=== PATIENT | male | born 1950 | race Caucasian/White ===

== ENCOUNTER 2018-08-24 21:46 | Emergency (ER) | payer MEDICARE, OTHER ==
--- NOTE | 2018-08-24 23:15 | EDM.PDOC ---
ED HPI GENERAL MEDICAL PROBLEM - General Chief Complaint: Respiratory Problem Stated Complaint: LUNGS Time Seen by Provider: 08/24/18 23:06 Source of Information: Reports: Patient, Family, RN Notes Reviewed History Limitations: Reports: No Limitations - History of Present Illness INITIAL COMMENTS - FREE TEXT/NARRATIVE: 67-year-old gentleman presents to emergency department today with complaint of pain breath, he states his been going on all day has progressively gotten worse yet has a known history of atrial fibrillation was on sotalol total unfortunately developed a GI bleed from this medication. He is currently on aspirin which he did take today. - Related Data Allergies Allergy/AdvReac Type Severity Reaction Status Date / Time Penicillins Allergy Hives Verified 08/24/18 22:18 Home Meds: Home Meds Aspirin [Ecotrin EC] 325 mg PO DAILY 08/24/18 [History] Metoprolol Tartrate 25 mg PO DAILY 08/24/18 [History] Mometasone Furoate [Asmanex] 220 mcg IH ASDIRECTED 08/24/18 [History] Omeprazole Magnesium [Prilosec Otc] 20 mg PO DAILY 08/24/18 [History] Tamsulosin HCl [Flomax] 0.4 mg PO DAILY 08/24/18 [History] Past Medical History Cardiovascular History: Reports: Afib, Pacemaker Respiratory History: Reports: Other (See Below) Other Respiratory History: scrcoidois with lung involevment 2003 Gastrointestinal History: Reports: Other (See Below) Other Gastrointestinal History: acute idiopathic pancerattic with necrosis 2018 Genitourinary History: Reports: Prostate Disorder - Infectious Disease History Infectious Disease History: Reports: Chicken Pox - Past Surgical History HEENT Surgical History: Reports: Adenoidectomy, Tonsillectomy Cardiovascular Surgical History: Reports: Pacer Neurological Surgical History: Reports: C-Spine, Spinal Fusion Musculoskeletal Surgical History: Reports: Joint Replacement, Other (See Below) Other Musculoskeletal Surgeries/Procedures:: left hip replacement Social & Family History - Tobacco Use Smoking Status *Q: Never Smoker Second Hand Smoke Exposure: No - Caffeine Use Caffeine Use: Reports: Coffee - Recreational Drug Use Recreational Drug Use: No ED ROS GENERAL - Review of Systems Review Of Systems: See Below Constitutional: Reports: No Symptoms HEENT: Reports: No Symptoms Respiratory: Reports: Shortness of Breath Cardiovascular: Reports: Dyspnea on Exertion GI/Abdominal: Reports: No Symptoms ED EXAM, GENERAL - Physical Exam Exam: See Below Exam Limited By: No Limitations General Appearance: Alert, WD/WN, No Apparent Distress Respiratory/Chest: No Respiratory Distress, Lungs Clear, Normal Breath Sounds, No Accessory Muscle Use, Chest Non-Tender Cardiovascular: Irregularly Irregular GI/Abdominal: Soft, Non-Tender Course - Vital Signs Last Recorded V/S: Last Vital Signs Temp 98.9 F 08/24/18 22:26 Pulse 113 H 08/24/18 22:50 Resp 15 08/24/18 22:50 BP 121/72 08/24/18 22:50 Pulse Ox 92 L 08/24/18 22:50 - Orders/Labs/Meds Orders: Active Orders 24 hr Category Date Time Status Cardiac Monitoring [RC] .As Directed Care 08/24/18 23:13 Active EKG Documentation Completion [RC] ASDIRECTED Care 08/24/18 22:31 Active Peripheral IV Care [RC] . DIRECTED Care 08/25/18 00:02 Active Sodium Chloride 0.9% [Normal Saline] 1,000 ml Med 08/25/18 00:15 Active IV ASDIRECTED Sodium Chloride 0.9% [Saline Flush] Med 08/25/18 00:02 Active 10 ml FLUSH ASDIRECTED PRN Peripheral IV Insertion Adult [OM.PC] Urgent Oth 08/25/18 00:01 Ordered EKG 12 Lead [EK] Stat Ther 08/24/18 22:31 Ordered Medication Orders Sodium Chloride (Normal Saline) 1,000 mls @ 500 mls/hr IV ASDIRECTED AV Last Admin: 08/25/18 00:49 Dose: 500 mls/hr Sodium Chloride (Saline Flush) 10 ml FLUSH ASDIRECTED PRN PRN Reason: Keep Vein Open Last Admin: 08/25/18 00:50 Dose: 10 ml Labs: Laboratory Tests 08/24/18 08/24/18 08/24/18 Range/Units 23:12 23:12 23:12 WBC 9.5 (4.5-11.0) K/uL RBC 4.83 (4.30-5.90) M/uL Hgb 14.0 (12.0-15.0) g/dL Hct 42.8 (40.0-54.0) % MCV 89 (80-98) fL MCH 29 (27-31) pg MCHC 33 (32-36) % Plt Count 228 (150-400) K/uL Neut % (Auto) 70 H (36-66) % Lymph % (Auto) 12 L (24-44) % [place] % (Auto) 16 H (2-6) % Eos % (Auto) 1 L (2-4) % Baso % (Auto) 0 (0-1) % D-Dimer, Quantitative 653 H (0.0-400.0) ng/mL Sodium 139 L (140-148) mmol/L Potassium 3.8 (3.6-5.2) mmol/L Chloride 105 (100-108) mmol/L Carbon Dioxide 25 (21-32) mmol/L Anion Gap 12.8 (5.0-14.0) mmol/L BUN 15 (7-18) mg/dL Creatinine 1.1 (0.8-1.3) mg/dL Est Cr Clr Drug Dosing 73.65 mL/min Estimated GFR (MDRD) > 60 (>60) Glucose 113 H (74-106) mg/dL Calcium 8.5 (8.5-10.1) mg/dL Total Bilirubin 1.2 H (0.2-1.0) mg/dL AST 15 (15-37) U/L ALT 26 (12-78) U/L Alkaline Phosphatase 71 (46-116) U/L Troponin I < 0.017 (0.000-0.056) ng/mL Total Protein 6.4 (6.4-8.2) g/dL Albumin 3.1 L (3.4-5.0) g/dL Globulin 3.3 (2.3-3.5) g/dL Albumin/Globulin Ratio 0.9 L (1.2-2.2) Meds: Medications Generic Name Dose Route Start Last Admin Trade Name Freq PRN Reason Stop Dose Admin Sodium Chloride 1,000 mls @ 500 mls/hr 08/25/18 00:15 08/25/18 00:49 Normal Saline IV 500 mls/hr ASDIRECTED AV Administration Sodium Chloride 10 ml 08/25/18 00:02 08/25/18 00:50 Saline Flush FLUSH 10 ml ASDIRECTED PRN Administration Keep Vein Open Discontinued Medications Generic Name Dose Route Start Last Admin Trade Name Freq PRN Reason Stop Dose Admin Acetaminophen 650 mg 08/24/18 23:16 08/24/18 23:28 Tylenol PO 08/24/18 23:17 650 mg NOW ONE Administration Sodium Chloride 100 mls @ 4 mls/sec 08/25/18 00:21 08/25/18 00:34 Normal Saline IV 08/25/18 00:22 4 mls/sec ASDIRECTED STA Administration Iopamidol 100 ml 08/25/18 00:21 08/25/18 00:33 Isovue-370 (76%) IV 08/25/18 00:22 100 ml . DIRECTED STA Administration Departure - Departure Time of Disposition: 01:38 Disposition: Home, Self-Care 01 Condition: Fair Clinical Impression: Atypical chest pain - Discharge Information Referrals: PCP,None [Primary Care Provider] - Forms: ED Department Discharge Additional Instructions: Continue to use Tylenol or Motrin as needed for pain control, Please followup with your primary care provider in 3-5 days if not better, please call return to the emergency department with worsening of symptoms. - My Orders Last 24 Hours: My Active Orders 08/24/18 22:31 EKG Documentation Completion [RC] ASDIRECTED EKG 12 Lead [EK] Stat 08/24/18 23:13 Cardiac Monitoring [RC] .As Directed 08/25/18 00:01 Peripheral IV Insertion Adult [OM.PC] Urgent 08/25/18 00:02 Peripheral IV Care [RC] . DIRECTED Sodium Chloride 0.9% [Saline Flush] 10 ml FLUSH ASDIRECTED PRN 08/25/18 00:15 Sodium Chloride 0.9% [Normal Saline] 1,000 ml IV ASDIRECTED - Assessment/Plan Last 24 Hours: My Active Orders 08/24/18 22:31 EKG Documentation Completion [RC] ASDIRECTED EKG 12 Lead [EK] Stat 08/24/18 23:13 Cardiac Monitoring [RC] .As Directed 08/25/18 00:01 Peripheral IV Insertion Adult [OM.PC] Urgent 08/25/18 00:02 Peripheral IV Care [RC] . DIRECTED Sodium Chloride 0.9% [Saline Flush] 10 ml FLUSH ASDIRECTED PRN 08/25/18 00:15 Sodium Chloride 0.9% [Normal Saline] 1,000 ml IV ASDIRECTED Plan: Assessment Acuity = acute Site and laterality = atypical chest pain Etiology = unclear etiology Manifestations = none Location of injury = Home Lab values = CBC, CMP unremarkable troponin was negative d-dimer slightly elevated around 700 CT scan of chest does no acute process no pulmonary embolism Plan She had good relief with 650 mg Tylenol suspicious for muscle skeletal continue with Tylenol as needed follow-up primary care 3-5 days if not better This note was dictated using Tailored voice recognition software please call with any questions on syntax or grammar.
[2018-08-24] MEDS ORDERED: Acetaminophen 325 MG Tab PO ONE (23:16)
--- NOTE | 2018-08-24 23:54 | CRLCR ---
INDICATION: Chest pain. History of lung scarring TECHNIQUE: Chest radiograph 2 views COMPARISON: None FINDINGS: Mediastinum: The mediastinum is normal in appearance. The heart silhouette is normal in size and morphology. There is a left cardiac pacer present with leads in the right atrium and right ventricle. Lung: There is a 4 mm nodule in the left mid lung zone present, likely a granuloma given its density for size. No sign of pleural effusion seen. No pneumothorax is identified. partially visualized. IMPRESSION: 1. There is a 4 mm nodule in the left mid lung zone present, likely a granuloma given its density for size. Comparison with any prior outside imaging is recommended. If these cannot be obtained, follow up chest radiograph in 3 months is warranted to document stability. Dictated by Negro Sheehan MD @ 08/24/2018 11:53:13 PM Dictated by: Negro Sheehan MD @ 08/24/2018 23:53:20 (Electronically Signed)
[2018-08-25] MEDS ORDERED: Sodium Chloride 0.9% 10 ML Syringe FLUSH PRN (00:02)
[2018-08-25] MEDS ORDERED: Sodium Chloride 0.9% 1,000 ML IV SCH (00:15)
[2018-08-25] MEDS ORDERED: Iopamidol 755 Mg/ML 100 ML Bottle IV STA (00:21)
[2018-08-25] MEDS ORDERED: Sodium Chloride 0.9% 100 ML IV STA (00:21)
--- NOTE | 2018-08-25 01:17 | CRLCT ---
INDICATION: Chest pain with deep inspiration. History of sarcoidosis. COMPARISON: Plain film of the chest from yesterday TECHNIQUE: CT examination of the chest was performed with the uneventful intravenous administration of 100 cc of Isovue 370 while 2 mm thick axial sections were obtained through the pulmonary arteries. Please note that all CT scans at this facility use dose modulation, iterative reconstruction, and/or weight-based dosing when appropriate to reduce radiation dose to as low as reasonably achievable. FINDINGS: : There is no sign of pulmonary embolism, with normal enhancement and branching of the pulmonary arteries. There is a moderate area of linear atelectasis in the anterior basilar segment of the left lower lobe adjacent to the heart. There is a moderate area of linear atelectasis involving the posterior aspect of the lateral segment of the right middle lobe. There is mild dependent atelectasis in the posterior left lung base. There is no sign of any pleural effusion. A linear area of calcification is seen in the posterior subpleural right lung base consistent with a calcified granuloma. A small calcified granuloma is seen in the anterior left mid lung, in the lateral lingula, corresponding to the calcification seen on the recent chest radiograph. There is mild left superior hilar adenopathy with a 1.2 x 1.0 centimeter lymph node consistent with a history of sarcoid. There is no sign of mediastinal mass or adenopathy. A few small calcified granulomata are seen in the mediastinum. And left hilum There is a moderate pericardial effusion. The heart itself is normal in size. Again seen is the left sided pacemaker with leads entering the left subclavian vein and terminating in the right atrium and ventricle. The aorta and ascending great vessels are normal in appearance. There is no sign of supraclavicular or axillary mass or adenopathy. The visualized superior liver, spleen, pancreas, kidneys, and adrenals are normal in appearance. The osseous structures are normal in appearance for the patient`s age. IMPRESSION: No sign of pulmonary embolism. Moderate pericardial effusion. The heart itself is normal in size. Moderate areas of linear atelectasis of the anterior basilar segment of the left lower lobe and of the posterior aspect of the lateral segment of the right middle lobe. Mild left superior hilar lymphadenopathy, consistent with history of sarcoid. Several small calcified granulomata in the lungs and mediastinum. Please note that all CT scans at this facility use dose modulation, iterative reconstruction, and/or weight-based dosing when appropriate to reduce radiation dose to as low as reasonably achievable. Dictated by Sumit Cross MD @ Aug 25 2018 1:01AM Signed by Dr. Sumit Cross @ Aug 25 2018 1:16AM
== END 2018-08-25 02:09 | disposition home or self-care (01) ==
LOC: JP.ED 21:46
DX: R07.89 Other chest pain (principal); I48.91 Unspecified atrial fibrillation; Z88.0 Allergy status to penicillin; Z79.82 Long term (current) use of aspirin; Z79.899 Other long term (current) drug therapy
CPT/HCPCS: 36415; 71046; 71275; 80053; 84484; 85025; 85379; 93005; 93010; 96360; 99284; 99285; A9270; J7030; Q9967

== ENCOUNTER 2020-08-30 22:14 | Emergency (ER) | payer MEDICARE, OTHER ==
[2020-08-30] MEDS ORDERED: Diphtheria,Pertussis(Acell),Tetanus Vaccine 0.5 ML Syringe IM ONE (22:36)
--- NOTE | 2020-08-30 22:58 | EDM.PDOC ---
ED HPI GENERAL MEDICAL PROBLEM - General Chief Complaint: General Stated Complaint: FISHHOOK Time Seen by Provider: 08/30/20 22:35 Source of Information: Reports: Patient History Limitations: Reports: No Limitations - History of Present Illness INITIAL COMMENTS - FREE TEXT/NARRATIVE: Is a 70-year-old male presenting to the ED for evaluation of a fishhook in his left index finger and the distal digit. The patient had his tetanus last in 2018 when he had his pacemaker placed. Left Finger-Index Pain Score (Numeric/FACES): 3 - Related Data Allergies Allergy/AdvReac Type Severity Reaction Status Date / Time Penicillins Allergy Hives Verified 08/30/20 22:31 Home Meds: Home Meds Metoprolol Tartrate 25 mg PO DAILY 08/24/18 [History] Mometasone Furoate [Asmanex] 220 mcg IH ASDIRECTED 08/24/18 [History] Omeprazole Magnesium [Prilosec Otc] 20 mg PO DAILY 08/24/18 [History] Tamsulosin HCl [Flomax] 0.4 mg PO DAILY 08/24/18 [History] Rivaroxaban [Xarelto] 20 mg PO DAILY 08/30/20 [History] Past Medical History Cardiovascular History: Reports: Afib, Pacemaker Respiratory History: Reports: Other (See Below) Other Respiratory History: scrcoidois with lung involevment 2003 Gastrointestinal History: Reports: Other (See Below) Other Gastrointestinal History: 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/2018 Genitourinary History: Reports: Prostate Disorder - Infectious Disease History Infectious Disease History: Reports: Chicken Pox - Past Surgical History HEENT Surgical History: Reports: Adenoidectomy, Tonsillectomy Cardiovascular Surgical History: Reports: Pacer Neurological Surgical History: Reports: C-Spine, Spinal Fusion Musculoskeletal Surgical History: Reports: Joint Replacement, Other (See Below) Other Musculoskeletal Surgeries/Procedures:: left hip replacement Social & Family History - Tobacco Use Tobacco Use Status *Q: Never Tobacco User - Caffeine Use Caffeine Use: Reports: None - Alcohol Use Number of Drinks Per Day: 1 - Recreational Drug Use Recreational Drug Use: No ED ROS GENERAL - Review of Systems Review Of Systems: See Below Constitutional: Reports: No Symptoms Musculoskeletal: Reports: Hand Pain ([place] embedded in the distal left index finger) Skin: Reports: Other ([place] embedded in the distal left index finger) Neurological: Reports: No Symptoms ED EXAM, GENERAL - Physical Exam Exam: See Below Exam Limited By: No Limitations General Appearance: Alert, No Apparent Distress Extremities: Normal Range of Motion, Normal Capillary Refill, Other ([place] embedded in the distal medial left index finger) Neurological: Alert, Oriented, No Motor/Sensory Deficits Foreign Body Removal - Pre-Procedure Indication: [place] embedded in the distal left index finger Consent Obtained: Reports: Patient Performing Doctor:: Panda Florez - Location/Anesthesia Left index finger Foreign Body Other Location Comment:: Distal left index finger Anesthesia Type: Local - Post-Procedure Findings:: After local lidocaine 1% was injected, the fishhook was grasped using a needle delivery driver and was extracted back through the original tract. Patient tolerated the extraction well without complications. Complications:: No (Pressure was held on the puncture wound to stop bleeding. ) Comments:: The patient is anticoagulated with Xarelto. Course - Vital Signs Last Recorded V/S: Last Vital Signs Temp 36.9 C 08/30/20 22:37 Pulse 67 08/30/20 22:37 Resp 14 08/30/20 22:37 BP 165/91 H 08/30/20 22:37 Pulse Ox 96 08/30/20 22:37 - Orders/Labs/Meds Orders: Active Orders 24 hr Category Date Time Status Vaccines to be Administered [RC] PER UNIT ROUTINE Care 08/30/20 22:36 Active Meds: Medications Discontinued Medications Generic Name Dose Route Start Last Admin Trade Name Freq PRN Reason Stop Dose Admin Diphtheria/Tetanus/Acell Pertussis 0.5 ml 08/30/20 22:36 08/30/20 22:40 Diphtheria,Pertussis(Acell),Tetanus Vaccine 0.5 Ml Syringe IM 08/30/20 22:37 Not Given .ONCE ONE Lidocaine HCl 5 ml 08/30/20 22:36 08/30/20 22:40 Lidocaine 1% 5 Ml Sdv INJECT 08/30/20 22:37 5 ml ONETIME ONE Administration - Re-Assessments/Exams Free Text/Narrative Re-Assessment/Exam: 08/30/20 23:02 the fishhook was successfully removed with some bleeding from the puncture wound secondary to the patient being anticoagulated with Xarelto. Pressure was held until bleeding was reduced to a trickle. A gauze and [place] dressing was applied. My plan is to also put patient on cephalexin 500 mg twice daily for 5 days as this lure was in [place]. Indications return to the ED were discussed and patient was discharged in satisfactory condition. Departure - Departure Time of Disposition: 23:04 Disposition: Home, Self-Care 01 Clinical Impression: [place] injury to finger Qualifiers: Encounter type: initial encounter Laterality: left Qualified Code(s): S69.92XA - Unspecified injury of left wrist, hand and finger(s), initial encounter - Discharge Information Instructions: Puncture Wound, [id number] Referrals: PCP,None [Primary Care Provider] - Care Plan Goals: As this [place] was in the water, we will put you on an antibiotic called cephalexin. It is 1 tablet twice daily for 5 days. I have sent this prescription to the [facility] machine so you may start it tonight. Good luck with fishing and the remaining time that you have here. Hopefully the crops at home are doing well. Sepsis Event Note (ED) - Evaluation Sepsis Screening Result: No Definite Risk - Focused Exam Vital Signs: Vital Signs Temp Pulse Resp BP Pulse Ox 08/30/20 22:37 36.9 C 67 14 165/91 H 96 08/30/20 22:31 36.9 C 67 14 165/91 H 96 - Problem List & Annotations (1) [place] injury to finger SNOMED Code(s): 10396715 Code(s): S69.90XA - UNSP INJURY OF UNSP WRIST, HAND AND FINGER(S), INIT ENCNTR Status: Acute Priority: Low Current Visit: Yes Qualifiers: Encounter type: initial encounter Laterality: left Qualified Code(s): S69.92XA - Unspecified injury of left wrist, hand and finger(s), initial e ncounter - Problem List Review Problem List Initiated/Reviewed/Updated: Yes - My Orders Last 24 Hours: My Active Orders 08/30/20 22:36 Vaccines to be Administered [RC] PER UNIT ROUTINE - Assessment/Plan Last 24 Hours: My Active Orders 08/30/20 22:36 Vaccines to be Administered [RC] PER UNIT ROUTINE
== END 2020-08-30 23:27 | disposition home or self-care (01) ==
LOC: JP.ED 22:14
DX: S60.451A Superficial foreign body of left index finger, initial encounter (principal); I48.91 Unspecified atrial fibrillation; Z95.0 Presence of cardiac pacemaker; Z79.01 Long term (current) use of anticoagulants; Z88.0 Allergy status to penicillin; Z79.899 Other long term (current) drug therapy; Z23 Encounter for immunization; W45.8XXA Other foreign body or object entering through skin, initial encounter
CPT/HCPCS: 90471; 99282; 99283

== ENCOUNTER 2022-07-31 16:00 | Emergency (ER) | payer MEDICARE, OTHER ==
[2022-07-31] MEDS ORDERED: Lidocaine 1% 5 ML VIAL INJECT ONE (16:29)
== END 2022-07-31 18:01 | disposition home or self-care (01) ==
LOC: JP.ED 16:00
DX: S60.453A Superficial foreign body of left middle finger, initial encounter (principal); I48.91 Unspecified atrial fibrillation; Z88.0 Allergy status to penicillin; Z79.01 Long term (current) use of anticoagulants; Z95.0 Presence of cardiac pacemaker; W45.8XXA Other foreign body or object entering through skin, initial encounter
CPT/HCPCS: 64450; 99282